=== PATIENT | female | born 1925 | race Caucasian/White ===

== ENCOUNTER 2017-02-09 08:40 | Inpatient (IN) | payer OTHER ==
[~2017-02-09] VITALS: Ht 160 cm; Wt 71.4 kg
--- NOTE | ~2017-02-09 | H ---
[facility] [place] [address] HISTORY AND PHYSICAL Name: CHOLODIRK Marta Room #: 435-P [facility] IN ..#: [id number] Admission: 02/09/17 Attend Phys: Tena Marsh Discharge: 02/12/17 Date of : [birth year] Report #: [id number] THIS REPORT FOR: //name// CC: Tremaine Shafer Neftali HISTORY OF PRESENT ILLNESS: An 89-year-old female with weakness and has just been going on over the last couple of days, but really no focal localizing symptom, maybe had some headache. PAST MEDICAL HISTORY: Significant for ischemic heart disease. She had a bypass many years ago. She has a history of hypertension. MEDICATIONS: She takes metoprolol, losartan, hydrochlorothiazide, simvastatin, and aspirin. ALLERGIES: She has no known allergies. FAMILY HISTORY: Noncontributory. SOCIAL HISTORY: She is a little confused and took a while to figure out where she actually lives. REVIEW OF SYSTEMS: Nothing specific, but I am not sure it is reliable. PHYSICAL EXAMINATION: GENERAL: Shows her awake, alert. She is in no distress. VITAL SIGNS: Stable. HEAD, EARS, EYES, NOSE AND THROAT: Negative. NECK: Supple, without thyromegaly or adenopathy. CHEST: Clear. CARDIOVASCULAR: Shows a regular rhythm without murmur. ABDOMEN: Soft and nontender. EXTREMITIES: Negative. NEUROLOGIC: Shows nothing focal. LABORATORY DATA: Shows a potassium of 3.2, creatinine 1.9. White count is 6.0, hemoglobin 14.2. Urine is clear. Influenza swab negative. Blood cultures are pending. CT scan of her head showed moderate atrophy. ASSESSMENT: This is an 89-year-old female with generalized weakness, not able to take care of herself at home in an independent living situation. So, she is admitted for IV fluids, potassium replacement and evaluation as to why her [facility] [address] [place] [address] HISTORY AND PHYSICAL Name: DIRK EMMANUEL Marta Room #: 435-P [facility]#: [id number] Admission: 02/09/17 Attend Phys: Tena Marsh Discharge: 02/12/17 Date of : [birth year] Report #: [id number] creatinine now has increased. We will plan IV fluids, serial creatinine, monitor and renal ultrasound. <ELECTRONICALLY SIGNED> By: Tremaine Ramirez MD 06/03/17 1257 0918 1002 Tremaine Ramirez MD /[facility]
--- NOTE | ~2017-02-09 | H ---
[facility] [place] [address] HISTORY AND PHYSICAL Name: CHOLODIRK Marta Room #: 435-P [facility] IN ..#: [id number] Admission: 02/09/17 Attend Phys: Tena Marsh Discharge: 02/12/17 Date of : [birth year] Report #: [id number] THIS REPORT FOR: //name// CC: Tremaine Tongcharles Neftali DATE OF SERVICE: 02/09/2017 CHIEF COMPLAINT: Weakness. HISTORY OF PRESENT ILLNESS: The patient is an elderly female who was admitted for weakness. She had some mild confusion at home and difficulty maintaining her function. She has not had any chest pain, shortness of breath or fever or chills reported. She has had some intermittent headaches recently. PAST MEDICAL HISTORY: Coronary artery disease, hypertension. PAST SURGICAL HISTORY: CABG. FAMILY HISTORY: Noncontributory. SOCIAL HISTORY: She lives at home. No chronic alcohol or tobacco use. ALLERGIES: None. MEDICATIONS: Potassium, Fioricet, hydrochlorothiazide, metoprolol, losartan, Zocor, and aspirin. REVIEW OF SYSTEMS: Other than general weakness and headache, denied shortness of breath, chest pain or GI symptoms. OBJECTIVE: VITAL SIGNS: Temperature 36.9, pulse 70, respirations 16, blood pressure 150/65. GENERAL: She is awake and alert, in no distress. LUNGS: Clear. HEART: Regular. ABDOMEN: Soft, normoactive bowel sounds. EXTREMITIES: No edema. ASSESSMENT: 1. Acute kidney injury. 2. Dehydration. 3. Hypokalemia. 4. Coronary artery disease. 5. Hypertension. [facility] [address] [place] [address] HISTORY AND PHYSICAL Name: DIRK EMMANUEL Room #: 435-P [facility] IN .R.#: [id number] Admission: 02/09/17 Attend Phys: Tena Marsh Discharge: 02/12/17 Date of : [birth year] Report #: [id number] PLAN: She is being treated with IV fluids and I stopped her hydrochlorothiazide therapy, will be investigated and she will have additional lab followup. <ELECTRONICALLY SIGNED> By: Arvin Lopez MD 03/26/17 1311 1321 1341 Arvin Lopez MD /nt
--- NOTE | ~2017-02-09 | D ---
[facility] [place] [address] DISCHARGE SUMMARY Name: CHOLODIRK L Room #: 435-P [facility] IN [facility].#: [id number] Admission: 02/09/17 Attend Phys: Tena Marsh Discharge: 02/12/17 Date of : [birth year] Report #: [id number] THIS REPORT FOR: //name// CC: Tremaine Shafer Neftali FINAL DIAGNOSES: 1. Acute kidney injury. 2. Dehydration. 3. Weakness. 4. Hypokalemia. 5. Hypertension. HOSPITAL COURSE: The patient was admitted with general weakness, main issue was that of mild dehydration with elevated BUN and creatinine, low potassium likely related to the hydrochlorothiazide use at home, that medication was discontinued and she switched to plain losartan. She received IV fluids for a day or so and then discontinued. Otherwise, she was tolerating a regular diet, participating with therapy and walking in the halls. She remained stable the rest of her stay and lab work normalized. Abdominal ultrasound was obtained, which showed some gallstones, but no obstruction and therefore, no treatment at this time. The CT head was unremarkable and blood cultures were negative. PHYSICAL EXAMINATION ON THE DAY OF DISCHARGE: GENERAL: She was awake and alert, in no distress. VITAL SIGNS: Temperature 36.5, pulse 70, respirations 19, blood pressure 153/58, and O2 sat 98% on room air. LUNGS: Clear. HEART: Regular. ABDOMEN: Soft, normoactive bowel sounds. EXTREMITIES: No edema. DISPOSITION: She will be discharged to senior living at [facility]. Diet and activity as tolerated. Follow up with Dr. Ramirez in 3 weeks. Resume all medicines, but holding Zocor, decrease aspirin to 81 mg and change Hyzaar to losartan 100 mg daily. <ELECTRONICALLY SIGNED> By: Arvin Lopez MD 02/13/17 0859 1236 1254 Arvin Lopez MD /nt
--- NOTE | ~2017-02-09 | EKG ---
[place] [address] [facility] [place] [address] ELECTROCARDIOGRAM REPORT Name: DIRK EMMANUEL Room #: 438-P ADM IN M.R.#: [id number] Admission: 02/09/17 Attend Phys: Tena Marsh Discharge: Date of : [birth year] Report #: [id number] THIS REPORT FOR: //name// [facility] ED Test Date: 2017-02-09 Test Time: 10:10:44 Pat Name: DIRK EMMANUEL Department: Room: 438 Gender: F Firewall Security Engineer: MARCIE : 1925 Requested By: Nia Barber Order Number: [id number] MD: Conor Shannon Measurements Intervals [place] Rate: 65 P: 31 NC: 188 QRS: -22 QRSD: 99 T: 88 QT: 431 QTc: 449 Interpretive Statements Sinus rhythm LVH with secondary repolarization abnormality Inferior infarct, old Compared to ECG 04/08/2016 07:37:07 No significant changes Electronically Signed On 02-09-2017 14:33:43 UROLOGY TEACHER by Conor Shannon [email or web address] <ELECTRONICALLY SIGNED> By: Conor Shannon MD, [facility] 02/09/17 1433 1010 1010 Conor Shannon MD, FACC /EPI
[~2017-02-09 08:40] MED LIST: ASPIRIN325; BUTALB-APAP-CA1 EACH PO; LOSARTAN-HCTZ1 EAC1 PO; POTASSIUM20 PO; TOPROL XL25 MG PO; XANAX 0.25 MG0.25 MG PO; ZOCOR40 MG PO
[2017-02-09 09:06] VITALS: BP 176/73
[2017-02-09 09:56] LABS: ABSOLUTE NEUTROPHILS 4.4 thou/uL (1.4-8.2); BASOPHILS 0.8 % (0.0-2.0); EOSINOPHILS 1.6 % (0.0-3.0); HEMOGLOBIN 14.2 gm/dL (12.0-15.0); LYMPHOCYTES 15.7 % (24.0-44.0); MCH 30.8 pg (26.0-34.0); MCHC 34.5 g/dL (28.0-37.0); MCV 89.2 fL (80.0-100.0); MONOCYTES 8.6 % (1.0-8.0); PLATELET COUNT 237 thou/uL (150-400); POLYS 73.3 % (36.0-66.0); RDW 13.5 % (10.5-14.5)
[2017-02-09 10:07] LABS: PROTIME 9.8 Seconds (9.3-11.4)
[2017-02-09 10:14] LABS: ALBUMIN 3.7 g/dL (3.4-5.0); ANION GAP 8 mmol/L (7-16); CALCIUM 8.9 mg/dL (8.5-10.1); CHLORIDE 104 mmol/L (98-107); CO2 30 mmol/L (21-32); CREATININE 1.9 mg/dL (0.6-1.0); GLUCOSE 123 mg/dL (74-106); POTASSIUM 3.2 mmol/L (3.5-5.1); SGOT 24 U/L (15-37); SGPT 25 U/L (30-65); SODIUM 142 mmol/L (136-145); TOTAL BILIRUBIN 0.5 mg/dL (<0.1-1.0); TOTAL PROTEIN 6.6 g/dL (6.4-8.2); TROPONIN-I < 0.04 ng/mL (<0.06)
[2017-02-09 10:22] LABS: BUN 30 mg/dL (7-18)
[2017-02-09 10:51] LABS: URINE BILIRUBIN NEGATIVE (Negative); URINE BLOOD NEGATIVE (Negative); URINE CLARITY CLEAR; URINE COLOR YELLOW; URINE GLUCOSE-RANDOM* NEGATIVE (Negative); URINE KETONES NEGATIVE (Negative); URINE LEUKOCYTES NEGATIVE (Negative); URINE NITRITE NEGATIVE (Negative); URINE PROTEIN (DIPSTICK) NEGATIVE (Negative); URINE SPECIFIC GRAVITY <= 1.005 (1.005-1.035); URINE UROBILINOGEN 0.2 E.U./dl (0.2-1.0)
[2017-02-09 12:38] VITALS: BP 160/61
[2017-02-09 13:08] VITALS: BP 130/72
[2017-02-09 13:40] VITALS: BP 167/66
[2017-02-09 19:32] VITALS: BP 146/62
[2017-02-09 23:52] VITALS: BP 157/73
[2017-02-10 05:25] VITALS: BP 155/75
[2017-02-10 07:40] VITALS: BP 159/62
[2017-02-10 09:54] LABS: CALCIUM 8.4 mg/dL (8.5-10.1); CREATININE 1.5 mg/dL (0.6-1.0); POTASSIUM 3.6 mmol/L (3.5-5.1)
[2017-02-10 15:55] VITALS: BP 174/69
[2017-02-10 19:17] VITALS: BP 152/69
[2017-02-11 04:00] VITALS: BP 162/66
[2017-02-11 07:43] VITALS: BP 150/65
[2017-02-11 11:19] LABS: CALCIUM 9.1 mg/dL (8.5-10.1); CREATININE 1.1 mg/dL (0.6-1.0); POTASSIUM 3.5 mmol/L (3.5-5.1)
[2017-02-11 16:00] VITALS: BP 139/52
[2017-02-11 19:23] VITALS: BP 138/60
[2017-02-12 04:12] VITALS: BP 151/66
[2017-02-12 08:00] VITALS: BP 153/58
[2017-02-12] MEDS ORDERED: COZAAR100 MG PO (12:31)
[2017-02-12] MEDS ORDERED: TYLENOL325 MG PO (12:32)
[2017-02-12] MEDS ORDERED: ASPIR 8181 MG PO (12:32)
[2017-02-12 13:36] VITALS: BP 153/58
[2017-09-01] MEDS ORDERED: KEFLEX500 M1 PO (04:05)
== END 2017-02-12 16:05 | disposition home health service (06) | DRG 682 ==
LOC: ER 08:40 → 4S 11:08 → EROBS 11:08 → 4S 13:17
PROVIDERS: Internal Medicine; Internal Medicine Geriatric Medicine; Physician Assistant
DX: N17.9 Acute kidney failure, unspecified (principal); G93.41 Metabolic encephalopathy; I10 Essential (primary) hypertension; E87.6 Hypokalemia; E86.0 Dehydration; Z95.1 Presence of aortocoronary bypass graft; Z79.82 Long term (current) use of aspirin; Z79.899 Other long term (current) drug therapy
CPT/HCPCS: 10102